=== PATIENT | female | born 1970 | race Caucasian/White ===

== ENCOUNTER 2019-06-05 11:53 | Observation (INO) | payer OTHER ==
[2019-06-05] MEDS ORDERED: Sodium Chloride 0.9% 1,000 ML IV ONE (11:58)
[2019-06-05 12:55] LABS: ANION GAP 16.8 mmol/L (5-15); CHLORIDE,CL 98 mmol/L (98-115); SODIUM,NA 137 mmol/L (136-145)
[2019-06-05] MEDS ORDERED: Sodium Chloride 0.9% 10 ML Syringe FLUSH PRN (13:40)
[2019-06-05] MEDS ORDERED: Nitroglycerin 0.4 MG Tab.SL SL PRN (14:23)
[2019-06-05] MEDS ORDERED: Lidocaine 2% 100 MG/5 ML Syringe IVPUSH PRN (14:23)
[2019-06-05] MEDS ORDERED: Atropine 0.1 MG/ML 10 ML Syringe IVPUSH PRN (14:23)
[2019-06-05] MEDS ORDERED: EPINEPHrine 1:10,000 1 MG/10 ML Syringe IVPUSH PRN (14:23)
[2019-06-05] MEDS: Oseltamivir 75 MG Cap PO SCH ×2 (15:29→20:44)
[2019-06-05] MEDS: Sodium Chloride 0.9% 1,000 ML IV SCH ×2 (15:32→22:27)
[2019-06-05] MEDS ORDERED: Omeprazole 20 MG Cap.CR PO SCH (21:00)
[2019-06-06] MEDS ORDERED: Acetaminophen 325 MG Tab PO PRN (01:09)
[2019-06-06] MEDS: Sodium Chloride 0.9% 1,000 ML IV SCH ×2 (05:18→11:40)
[2019-06-06] MEDS: Oseltamivir 75 MG Cap PO SCH (09:19)
--- NOTE | 2019-06-06 10:12 | PCM.PN ---
- General Info Date of Service: 06/06/19 Functional Status: Reports: Pain Controlled, Tolerating Diet, Urinating, Incentive Spirometry. Denies: Ambulating - Review of Systems General: Reports: Weakness. Denies: Fever HEENT: Reports: No Symptoms Pulmonary: Denies: Shortness of Breath, Sputum Cardiovascular: Reports: No Symptoms Gastrointestinal: Reports: No Symptoms Genitourinary: Reports: No Symptoms Musculoskeletal: Reports: No Symptoms Skin: Reports: No Symptoms Neurological: Reports: Weakness Psychiatric: Reports: Anxiety - Patient Data Vitals - Most Recent: Last Vital Signs Temp 97.6 F 06/06/19 06:58 Pulse 78 06/06/19 06:58 Resp 16 06/06/19 06:58 BP 121/77 06/06/19 06:58 Pulse Ox 97 06/06/19 06:58 Weight - Most Recent: 308 lb 3.2 oz I&O - Last 24 Hours: Intake & Output 06/05/19 06/06/19 06/06/19 22:59 06:59 14:59 Intake Total 900 3078 Balance 900 3078 Lab Results Last 24 Hours: Laboratory Results - last 24 hr 06/05/19 06/05/19 06/05/19 Range/Units 12:10 12:10 13:12 WBC 5.38 (5.00-10.00) 10^3/uL RBC 4.94 (3.80-5.50) 10^6/uL Hgb 14.1 (12.0-16.0) g/dL Hct 43.4 (37.0-47.0) % MCV 87.9 (82.0-92.0) fL MCH 28.5 (27.0-31.0) pg MCHC 32.5 (32.0-36.0) g/dL RDW 12.7 (11.5-14.5) % Plt Count 299 (150-400) 10^3/uL MPV 10.0 (7.4-10.4) fL Immature Gran % (Auto) 0.2 (0.0-5.0) % Neut % (Auto) 72.0 H (50.0-70.0) % Lymph % (Auto) 16.4 L (20.0-40.0) % [place] % (Auto) 9.9 H (2.0-8.0) % Eos % (Auto) 0.9 L (1.0-3.0) % Baso % (Auto) 0.6 (0.0-1.0) % Immature Gran # (Auto) 0.01 (0.00-0.50) 10^3/uL Neut # (Auto) 3.88 (2.50-7.00) 10^3/uL Lymph # (Auto) 0.88 L (1.00-4.00) 10^3/uL [place] # (Auto) 0.53 (0.10-0.80) 10^3/uL Eos # (Auto) 0.05 L (0.10-0.30) 10^3/uL Baso # (Auto) 0.03 (0.00-0.10) 10^3/uL Sodium 137 (136-145) mmol/L Potassium 4.6 (3.3-5.3) mmol/L Chloride 98 (98-115) mmol/L Carbon Dioxide 26.8 (21.0-32.0) mmol/L Anion Gap 16.8 H (5-15) mmol/L BUN 13 (6-25) mg/dL Creatinine 0.71 (0.51-1.17) mg/dL Est Cr Clr Drug Dosing 90.71 mL/min Estimated GFR (MDRD) > 60 mL/min Glucose 148 H (75 - 99) mg/dL Calcium 8.9 (8.7-10.3) mg/dL Total Bilirubin 0.3 (0.2-1.0) mg/dL AST 27 (15-37) U/L ALT 31 (12-78) U/L Alkaline Phosphatase 84 (46-116) IU/L Creatine Kinase 49 (26-276) U/L Troponin I 0.09 H* (0.00-0.070) ng/mL C-Reactive Protein 1.4 H (0.0-0.9) mg/dL Total Protein 7.6 (6.4-8.2) g/dL Albumin 3.60 (3.00-4.80) g/dL Specimen Type . Urine Color Yellow (YELLOW) Urine Appearance Clear (CLEAR) Urine pH 6.0 (5.0-9.0) Ur Specific [place] 1.025 (1.005-1.030) Urine Protein Negative (NEGATIVE) mg/dL Urine Glucose (UA) Negative (NEGATIVE) mg/dL Urine Ketones 15 H (NEGATIVE) mg/dL Urine Occult Blood Trace-intact H (NEGATIVE) Urine Nitrite Negative (NEGATIVE) Urine Bilirubin Negative (NEGATIVE) Urine Urobilinogen 0.2 (0.2-1.0) E.U./dL Ur Leukocyte Esterase Negative (NEGATIVE) Urine RBC 0-5 (0-5) /HPF Urine WBC 0-5 (0-5) /HPF Ur Epithelial Cells Occasional /LPF Amorphous Sediment Few (0/HPF) /HPF Urine Bacteria Few (NONE TO FEW) /HPF 06/05/19 06/05/19 Range/Units 16:12 19:55 WBC (5.00-10.00) 10^3/uL RBC (3.80-5.50) 10^6/uL Hgb (12.0-16.0) g/dL Hct (37.0-47.0) % MCV (82.0-92.0) fL MCH (27.0-31.0) pg MCHC (32.0-36.0) g/dL RDW (11.5-14.5) % Plt Count (150-400) 10^3/uL MPV (7.4-10.4) fL Immature Gran % (Auto) (0.0-5.0) % Neut % (Auto) (50.0-70.0) % Lymph % (Auto) (20.0-40.0) % [place] % (Auto) (2.0-8.0) % Eos % (Auto) (1.0-3.0) % Baso % (Auto) (0.0-1.0) % Immature Gran # (Auto) (0.00-0.50) 10^3/uL Neut # (Auto) (2.50-7.00) 10^3/uL Lymph # (Auto) (1.00-4.00) 10^3/uL [place] # (Auto) (0.10-0.80) 10^3/uL Eos # (Auto) (0.10-0.30) 10^3/uL Baso # (Auto) (0.00-0.10) 10^3/uL Sodium (136-145) mmol/L Potassium (3.3-5.3) mmol/L Chloride (98-115) mmol/L Carbon Dioxide (21.0-32.0) mmol/L Anion Gap (5-15) mmol/L BUN (6-25) mg/dL Creatinine (0.51-1.17) mg/dL Est Cr Clr Drug Dosing mL/min Estimated GFR (MDRD) mL/min Glucose (75 - 99) mg/dL Calcium (8.7-10.3) mg/dL Total Bilirubin (0.2-1.0) mg/dL AST (15-37) U/L ALT (12-78) U/L Alkaline Phosphatase (46-116) IU/L Creatine Kinase (26-276) U/L Troponin I 0.07 0.08 H* (0.00-0.070) ng/mL C-Reactive Protein (0.0-0.9) mg/dL Total Protein (6.4-8.2) g/dL Albumin (3.00-4.80) g/dL Specimen Type Urine Color (YELLOW) Urine Appearance (CLEAR) Urine pH (5.0-9.0) Ur Specific [place] (1.005-1.030) Urine Protein (NEGATIVE) mg/dL Urine Glucose (UA) (NEGATIVE) mg/dL Urine Ketones (NEGATIVE) mg/dL Urine Occult Blood (NEGATIVE) Urine Nitrite (NEGATIVE) Urine Bilirubin (NEGATIVE) Urine Urobilinogen (0.2-1.0) E.U./dL Ur Leukocyte Esterase (NEGATIVE) Urine RBC (0-5) /HPF Urine WBC (0-5) /HPF Ur Epithelial Cells /LPF Amorphous Sediment (0/HPF) /HPF Urine Bacteria (NONE TO FEW) /HPF Xander Results Last 24 Hours: Microbiology 06/05/19 12:32 Influenza Type A Antigen Screen - Final Nasal, Unspecified Positive Influenza A Ag Influenza Type B Antigen Screen - Final NEGATIVE INFLUENZA B VIRUS AG REFERENCE RANGE: NEGATIVE Med Orders - Current: Current Medications Acetaminophen (Tylenol) 650 mg PO Q6H PRN PRN Reason: Pain/Fever Last Admin: 06/06/19 01:34 Dose: 650 mg Atropine Sulfate (Atropine 0.1 Mg/Ml) 0 mg IVPUSH ASDIRECTED PRN PRN Reason: Heart. Epinephrine HCl (Epinephrine 1:10,000) 1 mg IVPUSH ASDIRECTED PRN PRN Reason: Heart. Sodium Chloride (Normal Saline) 1,000 mls @ 150 mls/hr IV ASDIRECTED MARTELL Last Admin: 06/06/19 05:18 Dose: 150 mls/hr Lidocaine HCl (Xylocaine 2%) 0 mg IVPUSH ASDIRECTED PRN PRN Reason: Heart. Nitroglycerin (Nitrostat) 0.4 mg SL ASDIRECTED PRN PRN Reason: Heart. Omeprazole (Omeprazole) 20 mg PO BEDTIME MARTELL Last Admin: 06/05/19 20:44 Dose: 20 mg Oseltamivir Phosphate (Tamiflu) 75 mg PO BID AMRTELL Stop: 06/10/19 14:01 Last Admin: 06/06/19 09:19 Dose: 75 mg Sodium Chloride (Saline Flush) 10 ml FLUSH Q8HR PRN PRN Reason: keep vein open Discontinued Medications Sodium Chloride (Normal Saline) 1,000 mls @ 500 mls/hr IV .BOLUS ONE Stop: 06/05/19 13:57 Last Admin: 06/05/19 12:15 Dose: 500 mls/hr - Exam Quality Assessment: DVT Prophylaxis (Will need ambulation today). No: Supplemental Oxygen General: Alert, Oriented, No Acute Distress HEENT: Other (Mucous membranes). No: Mucous Membr. Moist/[place] Neck: Supple Lungs: Clear to Auscultation, Normal Respiratory Effort Cardiovascular: Regular Rate, Regular Rhythm GI/Abdominal Exam: Normal Bowel Sounds, Soft (Female) Exam: Deferred Back Exam: No: CVA Tenderness (L) Extremities: No Pedal Edema, Other (Varicosities) Peripheral Pulses: 2+: Radial (L), Radial (R) Skin: Dry Neurological: No New Focal Deficit Psy/Mental Status: Other (Slight tearful) Sepsis Event Note - Evaluation Sepsis Screening Result: No Definite Risk - Focused Exam Vital Signs: Vital Signs Temp Pulse Resp BP BP Pulse Ox 06/06/19 06:58 97.6 F 78 16 121/77 97 06/06/19 03:00 98.0 F 78 20 133/78 95 06/05/19 23:00 97.9 F 87 16 149/94 H 95 Date Exam was Performed: 06/06/19 Time Exam was Performed: 09:53 - Problem List Review Problem List Initiated/Reviewed/Updated: Yes - Plan Plan:: History summary Mrs Santana a morbidly obese 49-year-old female that was admitted by Tammivioleta Sanford [facility] due to weakness syncope and cough. 3 days ago the patient developed a headache along with associated cough, lower extremity body aches, dizziness, poor appetite, with undocumented fevers chills along with a syncope episode while she was sitting on the toilet. She felt dizzy prior to the onset. Denies hitting her head though ended up with her body resting against the wall. No nausea or vomiting. No loss of bowel or bladder function. No chest pain or palpitations prior to episode. Patient is unsure of how long she was out for. She states that she was able to get up afterwards though has felt increasingly weak requiring the assistance of her to make it back to bed. She reports feeling nauseous without vomiting. She has had diarrhea that started 2 days prior to admission and about 3 episodes per day with decreased appetite. When she was evaluated by the admitting provider she complained of dizziness and lightheadedness and denoted SOB at times and chest tightness/pressure which she described as feeling as though someone is sitting on her chest. recently developed similar upper respiratory symptoms. Patient did not receive the flu shot. Pertinent history, the patient does not have any significant past cardiac history her father did of myocardial infarction at age 49. No history of HTN, last lipid in 2018 with total cholesterol- 192, Triglycerides-129, HDL-41, LDL 125. Patient is obese with a BMI of 47. She denies any history of DM though prior labs noted prediabetes in 2018 with fasting glucose of 110 and A1C of 6.3. Most recent fasting labs in july 2018 with normal fasting glucose at 93. No subsequent A1C. Hospital course to date, upon admission troponin level was slightly elevated 0.09 subsequent 0.08, C- reactive protein 1.4. She was placed on telemetry however reviewed telemetry strips without any ST morphology or concerns. Blood pressure slightly elevated on admission however normalized, he had no fever, she tolerated her regular diet , her comorbidities antivirals were started, she was given aggressive IV fluids next morning on rounds she felt much better, only mild dizziness, however she had not ambulated Primary hospital problems Influenza A with subsequent dehydration Chronic conditions: --GERD PPI --Prediabetes --Obesity, morbid --Restless leg syndrome- Mirapex. --Fluid retention- symptoms worse in the summertime and in heat. Takes lasix PRN Disposition/overall plan Continue observation, IV fluids, ambulate in halls today, can remove telemetry. Discharge planning Long and extensive motivational interviewing this morning at bedside regarding comorbid conditions and obesity with lifestyle modifications. Recommend medications to prevent diabetes type 2 and close follow-up with ongoing cognitive behavioral therapy and bariatric surgery consultation and other wt loss efforts. Due to significant first-degree relative early cardiac recommend echocardiogram, carotid ultrasound along with stress test if tolerable. She can follow-up with Tammi or myself if so desired.
--- NOTE | 2019-06-06 11:24 | PCM.DCSUM1 ---
Discharge Summary - Hospital Course Diagnosis: Stroke: No - Discharge Data Discharge Date: 06/06/19 Discharge Disposition: Home, Self-Care 01 Condition: Good - Referral to Home Health Primary Care Physician: Tammi Sanford NP - Patient Instructions Diet: Heart Healthy Diet Activity: As Tolerated, Cough & Deep Breathe Driving: May Drive Today Notify Provider of: Fever, Nausea and/or Vomiting - Discharge Plan *PRESCRIPTION DRUG MONITORING PROGRAM REVIEWED*: Not Applicable *COPY OF PRESCRIPTION DRUG MONITORING REPORT IN PATIENT JESUS: Not Applicable Prescriptions/Med Rec: Oseltamivir [Tamiflu] 75 mg PO BID #8 cap Home Medications: Home Meds Omeprazole Magnesium [Prilosec Otc] 20 mg PO BEDTIME 06/05/19 [History] Pramipexole [Mirapex] 0.25 mg PO BEDTIME 06/05/19 [History] Oseltamivir [Tamiflu] 75 mg PO BID #8 cap 06/06/19 [Rx] Referrals: Tammi Sanford, DANCING [employer] [Primary Care Provider] - (Anytime next week with Tammi or myself, her choice) - Discharge Summary/Plan Comment DC Time >30 min.: Yes Discharge Summary/Plan Comment: Coders, see physical exam and review of systems same day in progress note Final diagnosis Primary hospital problems Influenza A with subsequent dehydration Chronic conditions: --GERD PPI --Prediabetes --Obesity, morbid --Restless leg syndrome- Mirapex. --Fluid retention- symptoms worse in the summertime and in heat. Takes lasix PRN History summary Mrs Santana a morbidly obese 49-year-old female that was admitted by Tammi Sanford [facility] due to weakness syncope and cough. 3 days ago the patient developed a headache along with associated cough, lower extremity body aches, dizziness, poor appetite, with undocumented fevers chills along with a syncope episode while she was sitting on the toilet. She felt dizzy prior to the onset. Denies hitting her head though ended up with her body resting against the wall. No nausea or vomiting. No loss of bowel or bladder function. No chest pain or palpitations prior to episode. Patient is unsure of how long she was out for. She states that she was able to get up afterwards though has felt increasingly weak requiring the assistance of her to make it back to bed. She reports feeling nauseous without vomiting. She has had diarrhea that started 2 days prior to admission and about 3 episodes per day with decreased appetite. When she was evaluated by the admitting provider she complained of dizziness and lightheadedness and denoted SOB at times and chest tightness/pressure which she described as feeling as though someone is sitting on her chest. recently developed similar upper respiratory symptoms. Patient did not receive the flu shot. Pertinent history, the patient does not have any significant past cardiac history her father did of myocardial infarction at age 49. No history of HTN, last lipid in 2018 with total cholesterol- 192, Triglycerides-129, HDL-41, LDL 125. Patient is obese with a BMI of 47. She denies any history of DM though prior labs noted prediabetes in 2018 with fasting glucose of 110 and A1C of 6.3. Most recent fasting labs in july 2018 with normal fasting glucose at 93. No subsequent A1C. Hospital course upon admission troponin level was slightly elevated 0.09 subsequent 0.08, C- reactive protein 1.4. She was placed on telemetry however reviewed telemetry strips without any ST morphology or concerns. Blood pressure slightly elevated on admission however normalized, he had no fever, she tolerated her regular diet , her comorbidities antivirals were started, she was given aggressive IV fluids next morning on rounds she felt much better, only mild dizziness, however she had not ambulated. Disposition Discharge this afternoon, complete IV fluids, ambulate in halls today, can remove telemetry. --Long and extensive motivational interviewing this morning at bedside regarding comorbid conditions and obesity with lifestyle modifications. --Recommend medications to prevent diabetes type 2 and close follow-up to discuss CBT and/or bariatric surgery consultation and other wt loss efforts. --Due to significant first-degree relative early cardiac recommend echocardiogram, carotid ultrasound along with stress test WITH IMAGING as strong possibility of patient having some sort of reversible limited flow disease. - Patient Data Vitals - Most Recent: Last Vital Signs Temp 97.6 F 06/06/19 06:58 Pulse 78 06/06/19 06:58 Resp 16 06/06/19 06:58 BP 121/77 06/06/19 06:58 Pulse Ox 97 06/06/19 07:15 Weight - Most Recent: 308 lb 3.2 oz I&O - Last 24 hours: Intake & Output 06/05/19 06/06/19 06/06/19 22:59 06:59 14:59 Intake Total 900 3078 Balance 900 3078 Lab Results - Last 24 hrs: Laboratory Results - last 24 hr 06/05/19 06/05/19 06/05/19 Range/Units 12:10 12:10 13:12 WBC 5.38 (5.00-10.00) 10^3/uL RBC 4.94 (3.80-5.50) 10^6/uL Hgb 14.1 (12.0-16.0) g/dL Hct 43.4 (37.0-47.0) % MCV 87.9 (82.0-92.0) fL MCH 28.5 (27.0-31.0) pg MCHC 32.5 (32.0-36.0) g/dL RDW 12.7 (11.5-14.5) % Plt Count 299 (150-400) 10^3/uL MPV 10.0 (7.4-10.4) fL Immature Gran % (Auto) 0.2 (0.0-5.0) % Neut % (Auto) 72.0 H (50.0-70.0) % Lymph % (Auto) 16.4 L (20.0-40.0) % Jack % (Auto) 9.9 H (2.0-8.0) % Eos % (Auto) 0.9 L (1.0-3.0) % Baso % (Auto) 0.6 (0.0-1.0) % Immature Gran # (Auto) 0.01 (0.00-0.50) 10^3/uL Neut # (Auto) 3.88 (2.50-7.00) 10^3/uL Lymph # (Auto) 0.88 L (1.00-4.00) 10^3/uL Jack # (Auto) 0.53 (0.10-0.80) 10^3/uL Eos # (Auto) 0.05 L (0.10-0.30) 10^3/uL Baso # (Auto) 0.03 (0.00-0.10) 10^3/uL Sodium 137 (136-145) mmol/L Potassium 4.6 (3.3-5.3) mmol/L Chloride 98 (98-115) mmol/L Carbon Dioxide 26.8 (21.0-32.0) mmol/L Anion Gap 16.8 H (5-15) mmol/L BUN 13 (6-25) mg/dL Creatinine 0.71 (0.51-1.17) mg/dL Est Cr Clr Drug Dosing 90.71 mL/min Estimated GFR (MDRD) > 60 mL/min Glucose 148 H (75 - 99) mg/dL Calcium 8.9 (8.7-10.3) mg/dL Total Bilirubin 0.3 (0.2-1.0) mg/dL AST 27 (15-37) U/L ALT 31 (12-78) U/L Alkaline Phosphatase 84 (46-116) IU/L Creatine Kinase 49 (26-276) U/L Troponin I 0.09 H* (0.00-0.070) ng/mL C-Reactive Protein 1.4 H (0.0-0.9) mg/dL Total Protein 7.6 (6.4-8.2) g/dL Albumin 3.60 (3.00-4.80) g/dL Specimen Type . Urine Color Yellow (YELLOW) Urine Appearance Clear (CLEAR) Urine pH 6.0 (5.0-9.0) Ur Specific [place] 1.025 (1.005-1.030) Urine Protein Negative (NEGATIVE) mg/dL Urine Glucose (UA) Negative (NEGATIVE) mg/dL Urine Ketones 15 H (NEGATIVE) mg/dL Urine Occult Blood Trace-intact H (NEGATIVE) Urine Nitrite Negative (NEGATIVE) Urine Bilirubin Negative (NEGATIVE) Urine Urobilinogen 0.2 (0.2-1.0) E.U./dL Ur Leukocyte Esterase Negative (NEGATIVE) Urine RBC 0-5 (0-5) /HPF Urine WBC 0-5 (0-5) /HPF Ur Epithelial Cells Occasional /LPF Amorphous Sediment Few (0/HPF) /HPF Urine Bacteria Few (NONE TO FEW) /HPF 06/05/19 06/05/19 Range/Units 16:12 19:55 WBC (5.00-10.00) 10^3/uL RBC (3.80-5.50) 10^6/uL Hgb (12.0-16.0) g/dL Hct (37.0-47.0) % MCV (82.0-92.0) fL MCH (27.0-31.0) pg MCHC (32.0-36.0) g/dL RDW (11.5-14.5) % Plt Count (150-400) 10^3/uL MPV (7.4-10.4) fL Immature Gran % (Auto) (0.0-5.0) % Neut % (Auto) (50.0-70.0) % Lymph % (Auto) (20.0-40.0) % Jack % (Auto) (2.0-8.0) % Eos % (Auto) (1.0-3.0) % Baso % (Auto) (0.0-1.0) % Immature Gran # (Auto) (0.00-0.50) 10^3/uL Neut # (Auto) (2.50-7.00) 10^3/uL Lymph # (Auto) (1.00-4.00) 10^3/uL Jack # (Auto) (0.10-0.80) 10^3/uL Eos # (Auto) (0.10-0.30) 10^3/uL Baso # (Auto) (0.00-0.10) 10^3/uL Sodium (136-145) mmol/L Potassium (3.3-5.3) mmol/L Chloride (98-115) mmol/L Carbon Dioxide (21.0-32.0) mmol/L Anion Gap (5-15) mmol/L BUN (6-25) mg/dL Creatinine (0.51-1.17) mg/dL Est Cr Clr Drug Dosing mL/min Estimated GFR (MDRD) mL/min Glucose (75 - 99) mg/dL Calcium (8.7-10.3) mg/dL Total Bilirubin (0.2-1.0) mg/dL AST (15-37) U/L ALT (12-78) U/L Alkaline Phosphatase (46-116) IU/L Creatine Kinase (26-276) U/L Troponin I 0.07 0.08 H* (0.00-0.070) ng/mL C-Reactive Protein (0.0-0.9) mg/dL Total Protein (6.4-8.2) g/dL Albumin (3.00-4.80) g/dL Specimen Type Urine Color (YELLOW) Urine Appearance (CLEAR) Urine pH (5.0-9.0) Ur Specific [place] (1.005-1.030) Urine Protein (NEGATIVE) mg/dL Urine Glucose (UA) (NEGATIVE) mg/dL Urine Ketones (NEGATIVE) mg/dL Urine Occult Blood (NEGATIVE) Urine Nitrite (NEGATIVE) Urine Bilirubin (NEGATIVE) Urine Urobilinogen (0.2-1.0) E.U./dL Ur Leukocyte Esterase (NEGATIVE) Urine RBC (0-5) /HPF Urine WBC (0-5) /HPF Ur Epithelial Cells /LPF Amorphous Sediment (0/HPF) /HPF Urine Bacteria (NONE TO FEW) /HPF JE Results - Last 24 hrs: Microbiology 06/05/19 12:32 Influenza Type A Antigen Screen - Final Nasal, Unspecified Positive Influenza A Ag Influenza Type B Antigen Screen - Final NEGATIVE INFLUENZA B VIRUS AG REFERENCE RANGE: NEGATIVE Med Orders - Current: Current Medications Acetaminophen (Tylenol) 650 mg PO Q6H PRN PRN Reason: Pain/Fever Last Admin: 06/06/19 01:34 Dose: 650 mg Atropine Sulfate (Atropine 0.1 Mg/Ml) 0 mg IVPUSH ASDIRECTED PRN PRN Reason: Heart. Epinephrine HCl (Epinephrine 1:10,000) 1 mg IVPUSH ASDIRECTED PRN PRN Reason: Heart. Sodium Chloride (Normal Saline) 1,000 mls @ 300 mls/hr IV ASDIRECTED MARTELL Last Infusion: 06/06/19 11:11 Dose: 300 mls/hr Lidocaine HCl (Xylocaine 2%) 0 mg IVPUSH ASDIRECTED PRN PRN Reason: Heart. Nitroglycerin (Nitrostat) 0.4 mg SL ASDIRECTED PRN PRN Reason: Heart. Omeprazole (Omeprazole) 20 mg PO BEDTIME MARTELL Last Admin: 06/05/19 20:44 Dose: 20 mg Oseltamivir Phosphate (Tamiflu) 75 mg PO BID MARTELL Stop: 06/10/19 14:01 Last Admin: 06/06/19 09:19 Dose: 75 mg Sodium Chloride (Saline Flush) 10 ml FLUSH Q8HR PRN PRN Reason: keep vein open Discontinued Medications Sodium Chloride (Normal Saline) 1,000 mls @ 500 mls/hr IV .BOLUS ONE Stop: 06/05/19 13:57 Last Admin: 06/05/19 12:15 Dose: 500 mls/hr
[2019-06-06 11:35] VITALS: BP 141/95; PULSE 75
== END 2019-06-06 13:30 | disposition home or self-care (01) ==
LOC: KA.IVTHER 11:53 → KA.MS 13:35
PROVIDERS: ADMIT Nurse Practitioner Family; ATTEND Family Medicine
DX: J10.1 Influenza due to other identified influenza virus with other respiratory manifestations (principal); E86.0 Dehydration; R79.89 Other specified abnormal findings of blood chemistry; R55 Syncope and collapse; M79.10 Myalgia, unspecified site; R19.7 Diarrhea, unspecified; R11.0 Nausea; K21.9 Gastro-esophageal reflux disease without esophagitis; G25.81 Restless legs syndrome; R60.9 Edema, unspecified; R73.03 Prediabetes; E66.01 Morbid (severe) obesity due to excess calories; Z68.42 Body mass index [BMI] 45.0-49.9, adult; Z79.899 Other long term (current) drug therapy; Z91.030 Bee allergy status; Z88.8 Allergy status to other drugs, medicaments and biological substances; Z87.891 Personal history of nicotine dependence
CPT/HCPCS: 36415; 80053; 81001; 82550; 84484; 85025; 86140; 87804; 96360; 96361; A9270-GY; G0378; J7030